=== PATIENT | female | born 1965 | race Caucasian/White ===

== ENCOUNTER 2022-12-30 11:55 | Emergency (ER) | payer SELFPAY ==
[~2022-12-30] VITALS: Ht 154.9 cm; Wt 54.4 kg
[~2022-12-30 11:55] MED LIST: CIPR-263 PO; IBUP200C5; LEVO500T2 PO; TOPUD PO; TRAM50TA PO
[2022-12-30 11:58] VITALS: PULSE 76; RESP 16
[2022-12-30 12:01] VITALS: BP 110/62; TEMP 98.5; O2SAT 100
[2022-12-30] MEDS ORDERED: TOPUD MT (12:28)
[2022-12-30] MEDS ORDERED: NAPR275T96 MT (12:28)
[2022-12-30] MEDS ORDERED: KETOROLAC 30MG/ML VIAL IM ONE (12:30)
== END 2022-12-30 13:30 | disposition home or self-care (01) ==
LOC: ER 11:55
DX: S09.90XA Unspecified injury of head, initial encounter (principal); F41.9 Anxiety disorder, unspecified; Z79.899 Other long term (current) drug therapy; X58.XXXA Exposure to other specified factors, initial encounter; Y93.89 Activity, other specified; Y92.89 Other specified places as the place of occurrence of the external cause; Y99.8 Other external cause status
CPT/HCPCS: 99283; 81025; 96372; J1885